=== PATIENT | female | born 1975 | race African-American/Black ===

== ENCOUNTER 2021-12-28 05:12 | Emergency (ER) | payer MEDICAID ==
[~2021-12-28] VITALS: Ht 170.2 cm; Wt 136.0 kg
[2021-12-28] MEDS ORDERED: METOCLOPRAMIDE HCL 10MG/2ML VIAL IV ONE (06:15)
[2021-12-28] MEDS ORDERED: SODIUM CHLORIDE 0.9% 1,000 ML IV ONE (06:15)
[2021-12-28 06:30] VITALS: BP 129/77
[2021-12-28 06:37] LABS: CLARITY URINE CLOUDY (CLEAR); COLOR URINE YELLOW (YELLOW); KETONES URINE TRACE (NEGATIVE); LEUKOCYTE ESTERASE URINE 2+ (NEGATIVE); NITRITE URINE NEGATIVE (NEGATIVE); OCCULT BLOOD URINE 1+ (NEGATIVE); PROTEIN URINE TRACE (NEGATIVE); SPECIFIC GRAVITY URINE 1.027 (1.005-1.030)
[2021-12-28 07:14] LABS: CHLORIDE 109 mEq/L (98-107)
[2021-12-28 07:16] LABS: BASOPHILS % 0.3 % (0.0-2.0); EOSINOPHILS % 3.3 % (0.0-5.0); HEMATOCRIT. 31.3 % (36.0-48.0); HEMOGLOBIN. 10.5 g/dL (12.0-16.0); MEAN CORPUSCULAR HEMOGLOBIN 29.1 pg (28.0-32.0); MEAN CORPUSCULAR VOLUME 87.1 fL (81.0-99.0); MEAN PLATELET VOLUME 9.1 fl (7.4-10.4); MONOCYTES % 7.7 % (2.0-8.0); NEUTROPHILS % 71.7 % (40.0-76.0); PLATELET 202 x1000/uL (130-400); RED CELL DISTRIBUTION WIDTH 14.6 % (11.6-14.6)
[2021-12-28] MEDS ORDERED: CEPH500T MT (09:40)
== END 2021-12-28 09:53 | disposition home or self-care (01) ==
LOC: ER 05:42
DX: O23.32 Infections of other parts of urinary tract in pregnancy, second trimester (principal); Z3A.18 18 weeks gestation of pregnancy; Z98.890 Other specified postprocedural states
CPT/HCPCS: 36415; 80053; 81003; 81025; 85025; 87086; 93005; 96361; 96374; 99284; J2765; J7030

== ENCOUNTER 2025-02-19 15:18 | Emergency (ER) | payer MEDICAID ==
[~2025-02-19] VITALS: Ht 177.8 cm; Wt 200.0 kg
[~2025-02-19 15:18] MED LIST: CEPH500T MT
[2025-02-19 15:19] VITALS: O2SAT 100
[2025-02-19 16:05] LABS: BASOPHILS % 0.2 % (0.0-2.0); EOSINOPHILS % 3.7 % (0.0-5.0); HEMATOCRIT. 36.7 % (36.0-48.0); HEMOGLOBIN. 12.1 g/dL (12.0-16.0); LYMPHOCYTES % 18.2 % (20.0-50.0); MEAN CORPUSCULAR HEMOGLOBIN 28.8 pg (28.0-32.0); MEAN CORPUSCULAR HGB CONC 32.8 g/dL (31.0-37.0); MEAN CORPUSCULAR VOLUME 87.7 fL (81.0-99.0); MEAN PLATELET VOLUME 9.4 fl (7.4-10.4); MONOCYTES % 8.6 % (2.0-8.0); NEUTROPHILS % 69.3 % (40.0-76.0); PLATELET 233 x1000/uL (130-400); RED BLOOD CELL COUNT 4.19 mill/uL (4.2-5.4); RED CELL DISTRIBUTION WIDTH 15.6 % (11.6-14.6); WHITE BLOOD COUNT 4.4 x1000/uL (4.5-11.0)
[2025-02-19] MEDS: ONDANSETRON HCL 4MG/2ML INJ IV ONE (16:06)
[2025-02-19] MEDS: FAMOTIDINE 20MG/2ML VIAL IV ONE (16:06)
[2025-02-19] MEDS: LACTATED RINGERS 1,000 ML IV ONE (16:07)
[2025-02-19 16:19] LABS: PROTHROMBIN TIME 10.5 sec (9.6-11.0)
[2025-02-19 16:26] LABS: CHLORIDE 104 mEq/L (98-107); POTASSIUM 3.3 mEq/L (3.5-5.1); SODIUM 143 mEq/L (136-145)
[2025-02-19 16:27] LABS: CALCIUM 9.7 mg/dL (8.7-10.4); CARBON DIOXIDE 28 mEq/L (21-32)
[2025-02-19 16:32] LABS: GLUCOSE 93 mg/dL (70-105); UREA NITROGEN BLOOD 15 mg/dL (9-23)
[2025-02-19 16:34] LABS: ALANINE AMINOTRANSFERASE 18 IU/L (10-49); ALBUMIN 4.3 g/dL (3.2-4.8); ASPARTATE AMINOTRANSFERASE 26 IU/L (<34); BILIRUBIN DIRECT 0.3 mg/dL (<=3.0); BILIRUBIN TOTAL 0.9 mg/dL (0.1-1.0); PROTEIN TOTAL 7.2 g/dL (6.0-8.3); TROPONIN I HIGH SENSITIVITY 4 ng/L (3.0-34)
[2025-02-19 17:01] LABS: HCG SCREEN NEGATIVE
[2025-02-19 18:09] LABS: TROPONIN I HIGH SENSITIVITY 4 ng/L (3.0-34)
[2025-02-19] MEDS ORDERED: MAG-55 MT (18:27)
[2025-02-19] MEDS ORDERED: FAMO-135 MT (18:27)
[2025-02-19 19:01] VITALS: BP 129/93; PULSE 71; RESP 16; TEMP 36.9; O2SAT 100
== END 2025-02-19 19:35 | disposition home or self-care (01) ==
LOC: ER 15:18
DX: K29.70 Gastritis, unspecified, without bleeding (principal); E11.9 Type 2 diabetes mellitus without complications; E78.5 Hyperlipidemia, unspecified; I10 Essential (primary) hypertension; Z90.49 Acquired absence of other specified parts of digestive tract
CPT/HCPCS: 99285; 74176; 96374; 71045; 96361; 96375; 80076; 80048; 84703; 83880; 83690; 85025; 85610; 84484; 36415; 93005; J1308; J2405; J7120